=== PATIENT | male | born 1965 | race Caucasian/White ===

== ENCOUNTER → 2017-01-20 | Outpatient (CLI) | payer OTHER | LOC: BMCIMAGING 08:53 | PROVIDERS: ATTEND Podiatrist Foot & Ankle Surgery | DX: M10.072 Idiopathic gout, left ankle and foot (principal); K76.0 Fatty (change of) liver, not elsewhere classified ==

== ENCOUNTER 2017-05-25 11:55 | Emergency (ER) | payer OTHER ==
[2017-05-25 12:00] VITALS: BP 134/85; PULSE 56; RESP 16; TEMP 97.7; O2SAT 95
--- NOTE | 2017-05-25 13:05 | EDPHY ---
H & P Time Seen by Provider: 05/25/17 12:50 HPI/ROS: CHIEF COMPLAINT: Acute on chronic left foot pain HISTORY OF PRESENT ILLNESS: 52-year-old male history of DJD of the left midfoot followed by [facility] podiatry for which he has had evaluation, complaining of acute pain flare up for the past 2-3 days, concerned because he is scheduled to travel this week (today is Friday). He is unable to bear full weight. He has a baseline [place] boot which he has been wearing. He has a baseline dorsal mass to the left foot which has been evaluated by his skinning machine feeder informed that this was soft tissue only. Denies paresthesia. Denies coloration. Denies trauma. PHYSICAL EXAM (Prior to examination, patient consented to physical exam, hands were washed and my usual and customary physical exam procedures followed) 1) GENERAL: Well-developed, well-nourished, alert and oriented. Appears to be in no acute distress. 2) HEAD: Normocephalic 3) HEENT: Pupils equal, round, reactive to light bilaterally. 4) LUNGS: Breathing comfortably. 5) MUSCULOSKELETAL: Tender to palpation dorsal midfoot. No crepitus. Normal color normal temperature. Soft compartments. Proximally nontender. proximal tibia and fibula nontender .5th [place] nontender negative [place] test, compartments soft 6) SKIN: normal coloration 7) VASCULAR: DP,PT pulses and cap refill present and brisk DIFFERENTIAL DIAGNOSIS: in no particular order including but not limited to fracture, sprain, compartment syndrome, septic arthritis, gout Smoking Status: Never smoked Constitutional: Initial Vital Signs Temperature (C) 36.5 C 05/25/17 11:57 Heart Rate 56 L 05/25/17 11:57 Respiratory Rate 16 05/25/17 11:57 Blood Pressure 134/85 H 05/25/17 11:57 O2 Sat (%) 95 05/25/17 11:57 O2 Delivery Mode Room Air Allergies/Adverse Reactions: Penicillins Allergy (Mild, Verified 05/25/17 11:56) Rash Home Medications: Medication Instructions Recorded Aspirin [Aspirin 81mg (*)] 81 mg PO DAILY 05/25/17 Atorvastatin Calcium [Lipitor 40 40 mg PO 05/25/17 mg (*)] oxyCODONE/APAP 5/325 [Percocet 1 tab PO Q6 #14 tab 05/25/17 5/325] MDM/Departure - [facility] ED Course/Re-evaluation: This patient's foot appears well overall and I think that septic arthritis, vasculopathy, less than likely in this patient. Discussed possibility of acute gouty flare up. Discussed possibility of acute on chronic DJD flare up. Plan will be discharged with oxycodone with usual customary opiate precautions instructions. Recommend he follow up with his [facility] skinning machine feeder when he returns from his trip. Usual and customary orthopedic precautions instructions provided. Care of patient under supervision of secondary supervising physician Dr Espinoza . - Depart Disposition: Home, Routine, Self-Care Clinical Impression: Degenerative joint disease of left foot Qualifiers: Osteoarthritis type: unspecified Qualified Code(s): M19.072 - Primary osteoarthritis, left ankle and foot Condition: Good Instructions: Arthralgia (ED) Additional Instructions: Return to the ER immediately if you experience discoloration, have worsening pain, numbness, tingling, or any other symptoms that concern you. If you received x-rays in the emergency department today, be advised, that ligamentous , tendon, muscular, and other non-bony injury cannot be fully ruled out. Try to keep your affected extremity elevated above the level of your chest, and keep cold packs on the affected area, for the next 48 hours. Prescriptions: oxyCODONE/APAP 5/325 [Percocet 5/325] 1 tab PO Q6 #14 tab Referrals: Ho Estrada DPM [Doctor of Podiatric Medicine] - 2-3 days, call for appt.
== END 2017-05-25 13:13 | disposition home or self-care (01) ==
DX: M19.072 Primary osteoarthritis, left ankle and foot (principal); Z79.82 Long term (current) use of aspirin